=== PATIENT | male | born 1945 | race Caucasian/White ===

== ENCOUNTER → 2023-06-15 11:47 | Outpatient (REF) | payer MEDICARE, SELFPAY | LOC: PAVMRI 11:47 | PROVIDERS: ATTENDING PHYSICIAN Student in an Organized Health Care Education/Training Program | DX: M54.16 Radiculopathy, lumbar region (principal); M54.50 Low back pain, unspecified; M47.816 Spondylosis without myelopathy or radiculopathy, lumbar region | CPT/HCPCS: 72148 ==